=== PATIENT | male | born 1980 | race African-American/Black ===

== ENCOUNTER 2019-05-07 23:45 | Emergency (ER) | payer OTHER ==
[~2019-05-07] VITALS: Ht 188 cm; Wt 95.3 kg
[2019-05-07 23:56] VITALS: BP 128/82
== END 2019-05-08 01:32 | disposition home or self-care (01) ==
LOC: ER 23:45
DX: R10.9 Unspecified abdominal pain (principal); F10.129 Alcohol abuse with intoxication, unspecified; X31.XXXA Exposure to excessive natural cold, initial encounter; Z91.018 Allergy to other foods